=== PATIENT | male | born 1960 | race Caucasian/White ===

== ENCOUNTER 2018-05-14 11:44 | Day surgery (SDC) | payer BC ==
[2018-05-14] MEDS ORDERED: MIDAZOLAM 1 MG/ML 2 ML INJ ×2 (14:30)
[2018-05-14] MEDS ORDERED: FENTAnyl 50 MCG/ML VIAL (14:30)
== END 2018-05-14 16:55 | disposition home or self-care (01) ==
LOC: GIL 11:44
DX: Z12.11 Encounter for screening for malignant neoplasm of colon (principal); K64.8 Other hemorrhoids; K57.90 Diverticulosis of intestine, part unspecified, without perforation or abscess without bleeding; I10 Essential (primary) hypertension
CPT/HCPCS: 45378

== ENCOUNTER 2018-09-10 06:32 | Day surgery (SDC) | payer BC ==
[2018-09-10] MEDS ORDERED: CEFAZOLIN 1 GM INJ (07:00)
[2018-09-10] MEDS ORDERED: LACTATED RINGER'S 1,000 ML IV* (07:00)
[2018-09-10] MEDS ORDERED: CEFAZOLIN 2 GM/50 ML (PMX) 50 ML IVPB (07:00)
[2018-09-10] MEDS ORDERED: POLYMYXIN/BACITRACIN 1L IRRIG (08:23)
[2018-09-10] MEDS ORDERED: BUPIVACAINE 0.5% (SDV) 30 ML INJ (08:26)
[2018-09-10] MEDS ORDERED: HYDROmorphONE 1 MG/5 ML IV SYRINGE IV ×3 (08:30)
[2018-09-10] MEDS ORDERED: FENTAnyl 50 MCG/ML VIAL IV ×2 (08:30)
[2018-09-10] MEDS ORDERED: MEPERIDINE 25 MG INJ IV (08:30)
[2018-09-10] MEDS ORDERED: DIPHENHYDRAMINE 50 MG INJ IV (08:30)
[2018-09-10] MEDS ORDERED: PROCHLORPERAZINE 10 MG INJ IV (08:30)
[2018-09-10] MEDS ORDERED: ONDANSETRON 4 MG INJ IV (08:30)
[2018-09-10] MEDS ORDERED: OXYCODONE/ACETAMINOPHEN (5/325) TAB PO (08:30)
[2018-09-10] MEDS ORDERED: LIDOCAINE 2% (SDV) 5 ML INJ (08:33)
[2018-09-10] MEDS ORDERED: PROPOFOL 20 ML (08:33)
[2018-09-10] MEDS ORDERED: FENTAnyl 50 MCG/ML VIAL (08:34)
[2018-09-10] MEDS ORDERED: MIDAZOLAM 1 MG/ML 2 ML INJ (08:34)
[2018-09-10] MEDS ORDERED: DEXAMETHASONE 4 MG/ML 5 ML INJ (08:50)
[2018-09-10] MEDS ORDERED: ONDANSETRON 4 MG INJ (08:50)
[2018-09-10] MEDS ORDERED: FAMOTIDINE 20 MG INJ (08:51)
[2018-09-10] MEDS ORDERED: EPHEDrine 50 MG INJ (08:58)
[2018-09-10] MEDS: FENTAnyl 50 MCG/ML VIAL IV ×3 (09:36→09:59)
== END 2018-09-10 10:50 | disposition home or self-care (01) ==
LOC: SDS 06:32
DX: M77.11 Lateral epicondylitis, right elbow (principal); M25.721 Osteophyte, right elbow; I10 Essential (primary) hypertension; E78.5 Hyperlipidemia, unspecified
CPT/HCPCS: 24357